=== PATIENT | female | born 1995 | race Caucasian/White ===

== ENCOUNTER → 2020-09-20 | Outpatient (CLI) | payer OTHER ==
[~2020-09-20] MED LIST: No meds per pt.; ONDA4TAB13 SL; OXYC1TAB8 PO
== END | disposition home or self-care (01) ==
LOC: CFH 13:17
PROVIDERS: ATTEND Nurse Practitioner
DX: S52.572A Other intraarticular fracture of lower end of left radius, initial encounter for closed fracture (principal); M25.532 Pain in left wrist; X58.XXXA Exposure to other specified factors, initial encounter; Y93.89 Activity, other specified; Y92.89 Other specified places as the place of occurrence of the external cause; Y99.8 Other external cause status